=== PATIENT | female | born 1970 | race Caucasian/White ===

== ENCOUNTER 2018-01-11 16:04 | Emergency (ER) | payer MEDICAID ==
[~2018-01-11] VITALS: Ht 167.6 cm; Wt 144.2 kg
[~2018-01-11 16:04] MED LIST: ADVAIR 100-501 EACH; ALDACTONE50 MG; AMOXICILLIN500 M1 PO; ASPIR 8181 MG; BEPREVE10 ML; BIOTIN5 M1; BIOTIN5000 MCG; BUDEPRION XL300 MG; CLONAZEPAM1 GM; CLOTRIMAZOLE-BE15 GM; CLOTRIMAZOLE-BE15 GM TP; COLESTIPOL HCL1 G1; CULTURELLE KID1 EAC1; DEPLIN15 MG; DETROL2 M1; DIFLUCAN150 MG PO; FISH OIL 1,0001 EAC5; FLONASE 0.05%50 MCG NASAL; FLUOXETINE HCL40 MG; GLUCOPHAGE XR500 MG; LAMISIL AT 1% C12 G1; LEVAQUIN 750 M750 MG PO; LISINOPRIL10 MG; LUNESTA3 MG; NYSTATIN-TRIAMC15 G1; OMEPRAZOLE 20 M20 M1; OYSCO 500+D TA1 EAC1; PATADAY2.5 ML; PRAVACHOL20 MG PO; PREDNISONE 10 M10 MG PO; PREDNISONE 20 M20 M1 PO; PREDNISONE50 MG PO; PROAIR HFA8.5 GM; RISPERDAL 3 MG T3 M1; ROBAXIN500 MG PO; RONDEC-DM SYRU120 ML PO; SINGULAIR 10 MG10 M1; SYMBICORT160 MCG/4.; SYMBICORT160 MCG/4. INH; SYSTANE1 EACH; TESSALON PERLE100 MG PO; TRICOR145 MG; UNICOMPLEX M TA1 TA1; VITAMIN D2000 UNIT
[2018-01-11] MEDS ORDERED: ZYRTEC10 M5 PO (16:18)
[2018-01-11] MEDS ORDERED: COZAAR 50 MG TA50 M2 PO (16:18)
[2018-01-11] MEDS ORDERED: PROAIR HFA8.5 GM INH (16:18)
[2018-01-11 16:32] VITALS: BP 171/60
== END 2018-01-11 16:32 | disposition home or self-care (01) ==
LOC: M.ERS 16:04
DX: J06.9 Acute upper respiratory infection, unspecified (principal); E11.9 Type 2 diabetes mellitus without complications; J45.909 Unspecified asthma, uncomplicated; I10 Essential (primary) hypertension; K21.9 Gastro-esophageal reflux disease without esophagitis; E78.00 Pure hypercholesterolemia, unspecified; Z88.1 Allergy status to other antibiotic agents; Z88.8 Allergy status to other drugs, medicaments and biological substances

== ENCOUNTER 2021-06-12 01:26 | Emergency (ER) | payer MEDICAID ==
[~2021-06-12] VITALS: Ht 167.6 cm; Wt 137.9 kg
[~2021-06-12 01:26] MED LIST changes: +COZAAR 50 MG TA50 M2 PO; +PROAIR HFA8.5 GM INH; +ZYRTEC10 M5 PO
[2021-06-12 01:33] VITALS: BP 147/98
[2021-06-12] MEDS ORDERED: CLONAZEPAM 0.50.5 M1 PO (01:44)
[2021-06-12] MEDS ORDERED: METFORMIN HCL500 M3 PO (01:45)
[2021-06-12] MEDS ORDERED: QUESTRAN PACKET4 GM PO (01:47)
[2021-06-12] MEDS ORDERED: OMEPRAZOLE40 MG PO (01:47)
[2021-06-12] MEDS ORDERED: CRESTOR10 MG PO (01:47)
[2021-06-12] MEDS ORDERED: COZAAR 25 MG TA25 M1 PO (01:48)
== END 2021-06-12 02:52 | disposition left against medical advice (07) ==
LOC: M.ERS 01:26
DX: Z53.21 Procedure and treatment not carried out due to patient leaving prior to being seen by health care provider (principal)